=== PATIENT | female | born 1945 ===

== ENCOUNTER 2019-08-10 01:04 | Outpatient (CLI) | payer MEDICARE | END 2019-08-10 23:59 | disposition home or self-care (01) | LOC: DIABETIC 01:04 | PROVIDERS: ATTEND Specialist | DX: E11.65 Type 2 diabetes mellitus with hyperglycemia (principal); Z79.84 Long term (current) use of oral hypoglycemic drugs | CPT/HCPCS: G0108 ==

== ENCOUNTER 2019-09-24 04:25 | Outpatient (CLI) | payer MEDICARE | END 2019-09-24 23:59 | disposition home or self-care (01) | LOC: DIABETIC 04:25 | PROVIDERS: ATTEND Specialist | DX: E10.65 Type 1 diabetes mellitus with hyperglycemia (principal); Z79.4 Long term (current) use of insulin; Z79.899 Other long term (current) drug therapy; Z88.0 Allergy status to penicillin | CPT/HCPCS: G0108 ==

== ENCOUNTER 2019-12-26 00:49 | Outpatient (CLI) | payer MEDICARE | END 2019-12-26 23:59 | disposition home or self-care (01) | LOC: DIABETIC 00:49 | PROVIDERS: ATTEND Specialist | DX: E10.65 Type 1 diabetes mellitus with hyperglycemia (principal) | CPT/HCPCS: G0108 ==